=== PATIENT | female | born 1955 | race Caucasian/White ===

== ENCOUNTER 2023-04-06 10:12 | Emergency (ER) | payer BC, MEDICARE ==
[~2023-04-06] VITALS: Ht 167.6 cm; Wt 122.5 kg
[~2023-04-06 10:12] MED LIST: SERT100T PO
[2023-04-06 10:35] VITALS: BP_SYST 185; PULSE 75; RESP 16; TEMP 97.7; O2SAT 97
[2023-04-06 11:01] LABS: BASOPHILS % (AUTO) 0.3 % (0.0-2.0); EOSINOPHILS % (AUTO) 0.3 % (0.0-4.0); HEMATOCRIT 47.9 % (36-48); HEMOGLOBIN 15.6 g/dL (12.0-16.0); LYMPHOCYTES # (AUTO) 1.2 K/uL (1.0-5.5); LYMPHOCYTES % (AUTO) 11.9 % (20.5-51.5); MEAN CORPUSCULAR HEMOGLOBIN 29 pg (27-31); MEAN CORPUSCULAR HGB CONC 33 % (32-36); MEAN CORPUSCULAR VOLUME 88 fL (79.0-98.0); MONOCYTES # (AUTO) 0.4 K/uL (0.0-1.0); MONOCYTES % (AUTO) 3.8 % (1.7-9.3); NEUTROPHILS # (AUTO) 8.4 K/uL (1.8-7.7); NEUTROPHILS % (AUTO) 83.7 % (40.0-70.0); PLATELET COUNT (AUTO) 309 K/uL (130-430); RED BLOOD CELL COUNT(AUTO) 5.43 MIL/uL (4.2-6.2); RED CELL DISTRIBUTION WIDTH 13.4 % (9.0-15.0)
[2023-04-06 11:31] LABS: ANION GAP 8 (5-15); CALCIUM 9.1 mg/dL (8.4-11.0); CARBON DIOXIDE 27 mmol/L (23-29); CHLORIDE 105 mmol/L (98-107); CREATININE 1.03 mg/dL (0.55-1.30); GFR AFRICAN AMERICAN 69 mL/min (>90); GLUCOSE 134 mg/dL (74-106); POTASSIUM 4.3 mmol/L (3.5-5.1); SODIUM SERUM 140 mmol/L (136-145); UREA NITROGEN, BLOOD 12 mg/dL (8-21)
[2023-04-06 11:37] LABS: GFR NON AFRICAN-AMERICAN 57 mL/min (>90)
[2023-04-06 11:38] LABS: ALANINE AMINOTRANSFERASE 57 U/L (12-78); ASPARTATE AMINOTRANSFERASE 37 U/L (10-37); TOTAL BILIRUBIN 0.5 mg/dL (0.0-1.0); TOTAL PROTEIN, SERUM 7.2 g/dL (6.4-8.3)
[2023-04-06] MEDS ORDERED: MECL-261 PO (11:54)
[2023-04-06 12:26] VITALS: BP_SYST 181; PULSE 98; RESP 16; TEMP 99.3; O2SAT 95
== END 2023-04-06 12:15 | disposition home or self-care (01) ==
LOC: SED 10:12
DX: R42 Dizziness and giddiness (principal); I10 Essential (primary) hypertension; Z88.0 Allergy status to penicillin; Z88.1 Allergy status to other antibiotic agents; Z88.2 Allergy status to sulfonamides; Z79.899 Other long term (current) drug therapy
CPT/HCPCS: 36415; 70450-TC; 71045; 76376; 80053; 84484; 85025; 93005; 99285